=== PATIENT | female | born 2000 | race Caucasian/White ===

== ENCOUNTER 2025-06-06 22:03 | Emergency (ER) | payer OTHER ==
[2025-06-06 22:11] VITALS: BP 128/75; PULSE 93; RESP 18; TEMP 98.3; BMI 26.6
[2025-06-06 22:59] LABS: ABSOLUTE IMMATURE GRANULOCYTES 0.02 x10^3/uL (0.0-0.031); BASOPHILS # 0.04 x10^3/uL (0.01-0.08); EOSINOPHIL % 0.5 % (0.7-5.8); EOSINOPHILS # 0.04 x10^3/uL (0.04-0.36); MCHC 32.3 g/dl (32.2-35.5); MEAN CELL VOLUME 81.8 fl (79.4-94.8); MEAN PLT VOLUME 10.0 fl (9.4-12.3); MONOCYTE # 0.62 x10^3/uL (0.24-0.86); MONOCYTE % 7.5 % (4.7-12.5); RDW 13.9 % (12.1-16.5)
[2025-06-06 23:23] LABS: CREATININE 0.7 mg/dL (0.55-1.3); SGOT/AST 24.0 U/L (15-37); SGPT/ALT 28.0 U/L (13-61)
[2025-06-06 23:24] LABS: TOT PROT 7.3 g/dl (6.4-8.2)
[2025-06-06 23:25] LABS: ALK PHOS 57.0 U/L (45-117)
[2025-06-06 23:51] LABS: CO2 23.0 mmol/L (21-32); GLUCOSE,RANDOM 89.0 mg/dL (74-106)
[2025-06-07 00:11] LABS: HCV DIAGNOSTIC IN-HOUSE W/RFLX NON-REACTIVE (NONREACTIVE)
[2025-06-07 00:12] LABS: HIV INTERPRETATION NEGATIVE (NEGATIVE)
[2025-06-07 01:18] LABS: URINE APPEARANCE Clear; URINE BILIRUBIN Negative (NEGATIVE); URINE COLOR Yellow; URINE GLUCOSE (UA) Negative (NEGATIVE); URINE KETONE Negative (NEGATIVE); URINE LEUK ESTERASE 1+ (NEGATIVE); URINE NITRITE Negative (NEGATIVE); URINE PROTEIN Negative (NEGATIVE); URINE UROBILINOGEN 0.2 mg/dL (0.2-1.0)
== END 2025-06-07 00:33 | disposition home or self-care (01) ==
LOC: JER 22:03
DX: O20.0 Threatened abortion (principal); Z3A.01 Less than 8 weeks gestation of pregnancy
CPT/HCPCS: 36415; 76817-TC; 80053; 81003; 84702; 85025; 86803; 86850; 86900; 86901; 87389; 99284-25